=== PATIENT | male | born 1945 | race American Indian/Alaskan Native ===

== ENCOUNTER 2017-02-22 07:53 | Outpatient (CLI) | payer MEDICARE, OTHER ==
[2017-02-22 08:40] LABS: Blood Urea Nitrogen 19 mg/dL (9-20)
[2017-02-22] MEDS ORDERED: NACL ONE (08:45)
--- NOTE | 2017-02-22 10:22 | Cat Scan Report ---
CT ABDOMEN AND PELVIS WITH CONTRAST INDICATION: Abdominal pain. COMPARISON: 11/17/2015. FINDINGS: Abdomen and pelvis CT performed following intravenous administration of 100 cc of Omnipaque 300. LUNG BASES: Stable mild cardiomegaly and a 3 mm extreme right lung base calcified granuloma posteriorly adjacent to the hemidiaphragm, axial image 50, series 2. Few small right hilar/infrahilar calcifications also noted. Nonspecific distal esophageal wall prominence/thickening, not excluded for gastroesophageal reflux and/or hiatal hernia, amongst others. ABDOMEN: Liver, spleen, gallbladder, adrenals, nonaneurysmal abdominal aorta with few atherosclerotic changes and IVC within normal limits. Stable pancreas, including an indeterminate 5 mm pancreatic tail/tip hypodensity on axial image 100, series 2. No hydronephrosis with stable 7.4 cm partly exophytic right renal cyst inferiorly and an approximately 8 mm nonobstructing right lower renal calculus just above it, coronal image 88. No ascites or significant adenopathy. Ingested fluid noted in the stomach and the duodenum. Small bowel fluid filled throughout with few jejunal loops minimally prominent at 2 cm caliber, axial image 183, series 2. Normal appendix. Somewhat liquid contents along the ascending colon with moderate stool along the transverse and descending colon. Stable tiny fat containing umbilical hernia. PELVIS: Rectosigmoid stool. Possible TURP defect with few small prostate calcifications and pelvic phleboliths incidentally noted. Mixing artifact noted within the urinary bladder with subtle nonspecific soft tissue prominence/fullness posteroinferiorly near its base, axial images 352-364, series 2, possibly related to an enlarged prostate that may also be correlated for clinically and with PSA, though subtle bladder mass not entirely excluded. No free fluid or significant adenopathy. Approximately 2 cm fat containing left inguinal hernia proximally again noted, axial image 366. Mild multilevel spinal degenerative changes, including spurring and few small Schmorl's nodes along the endplates. Mild SI joint degenerative spurring as well, left more than right. CONCLUSION: 1. Small bowel and proximal colon noted fluid-filled with gastroenteritis like etiology possible. Please correlate. 2. Moderate stool/possible constipation along remainder colon also again suspected. 3. Nonspecific soft tissue prominence/questionable filling defect along the urinary bladder posteroinferiorly near the base. Urology correlation may be obtained, as warranted. 4. Various other stable findings, including mild cardiomegaly, old healed granulomatous disease, distal esophageal thickening, large right renal cyst and nonobstructing calculus as also possible prior prostate surgery, amongst others, as above. Thank you for the opportunity to participate in this patient's care.
== END 2017-02-22 07:54 | disposition home or self-care (01) ==
LOC: CT 07:53
PROVIDERS: ATTEND Internal Medicine Gastroenterology
DX: N20.0 Calculus of kidney (principal); N28.1 Cyst of kidney, acquired; K42.9 Umbilical hernia without obstruction or gangrene; K40.90 Unilateral inguinal hernia, without obstruction or gangrene, not specified as recurrent; I51.7 Cardiomegaly; J84.10 Pulmonary fibrosis, unspecified; I70.0 Atherosclerosis of aorta; N42.89 Other specified disorders of prostate; I87.8 Other specified disorders of veins; M47.899 Other spondylosis, site unspecified
CPT/HCPCS: 36415; 74177; 82565; 84520; Q9967

== ENCOUNTER 2017-08-28 08:57 | Outpatient (CLI) | payer MEDICARE, OTHER ==
--- NOTE | 2017-08-28 11:58 | Mammography Report ---
BONE DEXA:08/28/17 08:57:00 CLINICAL: Postmenopausal. COMPARISON: 01/08/16 TECHNIQUE: Two site bone DEXA performed on an Hologic scanner. FINDINGS: The average BMD of the lumbar spine L1-L4 is 1.170g/cm squared with a T-score of -0.3 and a Z-score of +0.7. This compares to 1.154g/cm squared on the last exam and represents a +1.4% change from the previous baseline. The average BMD of the left hip is 0.911g/cm squared with a T-score of -1.5 and a Z-score of -0.5. This compares to 0.906g/cm squared on the last exam and represents a +0.7% change from the previous baseline. IMPRESSION: 1. WHO classification: Normal with average fracture risk based on spine measurements. 2. WHO classification: Osteopenia with increased fracture risk based on left hip measurements. 3. A slight improvement in both spine and left hip BMD compared to the last exam. RECOMMENDATION: Clinical correlation and routine screening. DEFINITIONS: BMD = Bone Mineral Density T-score = BMD related to mean peak bone mass of young adult (mean expressed in Standard Deviation) Z-score = Age matched BMD expressed in SD World Health Organization (WHO) Diagnostic Criteria Normal T-score > -1 SD Osteopenia T-score between -1 and -2.4 SD Osteoporosis T-score -2.5 SD or below NOTE: BMD is not the only risk factor for fracture; also consider factors such as the patient's age, risk of falling, previous osteoporotic fracture, family history of osteoporotic fractures, current smoker, and low body weight. Z-scores are not calculated if >80 years of age.
== END 2017-08-28 08:58 | disposition home or self-care (01) ==
LOC: SPVWC 08:57
PROVIDERS: ATTEND Family Medicine
DX: M85.88 Other specified disorders of bone density and structure, other site (principal)
CPT/HCPCS: 77080

== ENCOUNTER 2020-09-02 10:54 | Outpatient (CLI) | payer MEDICARE, OTHER ==
[2020-09-02 11:38] LABS: Hematocrit 42.6 % (35.5-45.6); Mean Corpuscular HGB Conc 33 % (32-34); Mean Corpuscular Volume 89 fl (84-94); Platelet Count 123 K/mm3 (140-440); Red Blood Count 4.78 M/mm3 (3.65-5.03); Red Cell Distribution Width 14.8 % (13.2-15.2)
[2020-09-02 11:57] LABS: Alanine Aminotransferase 20 units/L (7-56); Albumin 4.2 g/dL (3.9-5); BUN/Creatinine Ratio 14; Blood Urea Nitrogen 17 mg/dL (9-20); Calcium 9.2 mg/dL (8.4-10.2); Hemolysis Index 4
[2020-09-05 10:15] LABS: Vitamin D, 25-OH, D2 <4 ng/mL
== END 2020-09-02 10:55 | disposition home or self-care (01) ==
LOC: LAB 10:54
PROVIDERS: ATTEND Specialist
DX: G45.9 Transient cerebral ischemic attack, unspecified (principal); G31.84 Mild cognitive impairment of uncertain or unknown etiology; E07.89 Other specified disorders of thyroid
CPT/HCPCS: 36415; 80053; 82306; 82607; 83921; 84443; 85027; 86592